=== PATIENT | female | born 1965 | race Caucasian/White ===

== ENCOUNTER 2017-10-07 06:02 | Emergency (ER) | payer OTHER ==
[2017-10-07] MEDS ORDERED: Lorazepam 0.5 MG TAB ONE (07:22)
== END 2017-10-07 07:36 | disposition home or self-care (01) ==
LOC: BURERS 06:02
DX: F32.9 Major depressive disorder, single episode, unspecified (principal); T43.225A Adverse effect of selective serotonin reuptake inhibitors, initial encounter; F41.9 Anxiety disorder, unspecified; Z79.899 Other long term (current) drug therapy
CPT/HCPCS: 99283

== ENCOUNTER 2019-11-07 23:46 | Outpatient (CLI) | payer MEDICAID ==
[2019-11-08 00:06] LABS: Bilirubin Negative (Negative); Blood, Urine Negative (Negative); Clarity Clear (Clear); Glucose, Urine (Dipstick) Negative (Negative); Leukocyte Negative (Negative); Nitrite Negative (Negative); Protein, Urine (Dipstick) Negative (Neg-Trace); Urobilinogen 0.2 mg/dL (Less than 2)
== END 2019-11-07 23:47 | disposition home or self-care (01) ==
LOC: BURLABSP 23:46
PROVIDERS: ATTEND Registered Nurse Community Health
DX: N39.0 Urinary tract infection, site not specified (principal); R41.0 Disorientation, unspecified; R30.0 Dysuria
CPT/HCPCS: 81003; 87086

== ENCOUNTER 2019-12-05 21:52 | Outpatient (CLI) | payer MEDICAID, OTHER ==
[2019-12-05 22:04] LABS: Bilirubin Negative (Negative); Blood, Urine Negative (Negative); Clarity Clear (Clear); Glucose, Urine (Dipstick) Negative (Negative); Ketone, Urine Negative (Negative); Leukocyte Negative (Negative); Nitrite Negative (Negative); Protein, Urine (Dipstick) Negative (Neg-Trace); Specific Gravity, Urine 1.025 (1.005-1.030); Urobilinogen 0.2 mg/dL (Less than 2)
[2019-12-05 22:05] LABS: Urine Culture Reflex No No
[2019-12-05 22:11] LABS: Bacteria/HPF Rare-Few HPF (None Seen); RBC/HPF None Seen HPF (0-3); Squamous Epithelial 0-3 HPF (0-3); WBC/HPF 0-3 HPF (0-3)
== END 2019-12-05 21:53 | disposition home or self-care (01) ==
LOC: BURMANOR 21:52
PROVIDERS: ATTEND Registered Nurse Community Health
DX: N39.0 Urinary tract infection, site not specified (principal); R41.0 Disorientation, unspecified; R03.0 Elevated blood-pressure reading, without diagnosis of hypertension; R30.0 Dysuria
CPT/HCPCS: 81001; 87086

== ENCOUNTER 2020-01-17 14:21 | Outpatient (CLI) | payer OTHER ==
[2020-01-17 14:42] LABS: ALT (SGPT) 35 U/L (8-55); AST (SGOT) 37 U/L (5-34); Albumin 4.7 g/dL (3.5-5.0); Alkaline Phosphatase 86 U/L (40-110); Anion Gap 20 mmol/L (10-20); BUN (Urea Nitrogen) 9 mg/dL (9.8-20.1); Bilirubin, Total 0.3 mg/dL (0.2-1.2); Calc. Creatinine Clearance 0 mL/min (70-130); Calcium 9.3 mg/dL (7.8-10.44); Carbon Dioxide 25 mmol/L (22-29); Chloride 100 mmol/L (98-107); Estimated GFR-MDRD 71; Globulin 2.8 g/dL (2.4-3.5); Glucose 153 mg/dL (70-105); Potassium 4.7 mmol/L (3.5-5.1); Protein, Total 7.5 g/dL (6.0-8.3); Sodium 140 mmol/L (136-145)
== END 2020-01-17 14:22 | disposition home or self-care (01) ==
LOC: BURMANOR 14:21
PROVIDERS: ATTEND Registered Nurse Community Health
DX: R41.82 Altered mental status, unspecified (principal)
CPT/HCPCS: 80053

== ENCOUNTER 2020-04-01 06:56 | Outpatient (CLI) | payer OTHER ==
[2020-04-01 07:12] LABS: Bilirubin Negative (Negative); Blood, Urine Large (Negative); Clarity Cloudy (Clear); Glucose, Urine (Dipstick) Negative (Negative); Ketone, Urine Negative (Negative); Leukocyte Large (Negative); Nitrite Negative (Negative); Protein, Urine (Dipstick) Negative (Neg-Trace); Urobilinogen 0.2 mg/dL (Less than 2)
[2020-04-01 07:22] LABS: RBC/HPF 21-50 HPF (0-3)
[2020-04-01 07:23] LABS: Bacteria/HPF 3+ HPF (None Seen); Squamous Epithelial 0-3 HPF (0-3)
== END 2020-04-01 06:57 | disposition home or self-care (01) ==
LOC: BURMANOR 06:56
PROVIDERS: ATTEND Registered Nurse Community Health
DX: R31.9 Hematuria, unspecified (principal)
CPT/HCPCS: 81001; 87086

== ENCOUNTER 2020-07-23 12:29 | Outpatient (CLI) | payer OTHER ==
--- NOTE | 2020-07-23 13:06 | RAD ---
Exam: Right hand 3 views: HISTORY: Right hand pain and thumb pain COMPARISON: None FINDINGS: Mild degenerative and osteoarthrosis change. No evidence for fracture, dislocation, or other significant acute osseous abnormality. IMPRESSION: No significant acute process.
== END 2020-07-23 12:30 | disposition home or self-care (01) ==
LOC: BURRAD 12:29
PROVIDERS: ATTEND Family Medicine
DX: M79.641 Pain in right hand (principal)